=== PATIENT | female | born 1950 | race Caucasian/White ===

== ENCOUNTER 2016-08-29 09:28 | Outpatient (CLI) | payer MEDICARE ==
[2016-08-29 11:14] LABS: ALT (SGPT) 19 U/L (8-55); AST (SGOT) 25 U/L (5-34); Albumin 4.4 g/dL (3.4-4.8); Alkaline Phosphatase 92 U/L (40-150); Bilirubin, Direct 0.3 mg/dL (0.1-0.3); Bilirubin, Total 0.7 mg/dL (0.2-1.2); Cardiac Risk 3.3 (Less than 4.5); Cholesterol 210 mg/dl (< 200 Desired); HDL Cholesterol 64 mg/dL (>60 Neg Risk); LDL Cholesterol, Calculated 129 mg/dL; Protein, Total 7.5 g/dL (6.0-8.3); Triglycerides 86 mg/dL (Less than 150)
== END 2016-08-29 09:29 | disposition home or self-care (01) ==
LOC: BURLAB 09:28
PROVIDERS: ATTEND Internal Medicine Cardiovascular Disease
DX: E78.2 Mixed hyperlipidemia (principal); Z79.01 Long term (current) use of anticoagulants
CPT/HCPCS: 36415; 80061; 80076

== ENCOUNTER 2016-10-03 10:33 | Outpatient (CLI) | payer MEDICARE ==
[2016-10-03 11:44] LABS: #Eosinphils 0.1 thou/uL (0.0-0.7); #Lymphocytes 2.8 thou/uL (1.20-3.40); #Monocytes 0.6 thou/uL (0.11-0.59); #Neutrophils 6.9 thou/uL (1.40-6.50); %Basophils 0.4 % (0.0-1.0); %Eosinophils 0.6 % (0.0-10.0); %Lymphocytes 27.1 % (21.0-51.0); %Monocytes 5.4 % (0.0-10.0); %Neutrophils 66.6 % (42.0-75.0); Mean Corpuscular HGB CONC 34.1 g/dL (32.0-36.0); Mean Platelet Volume 6.3 fL (7.4-10.4); Platelet Count 301 thou/uL (130-400); RBC Distribution Width 13.6 % (11.5-14.5); Red Blood Cell (RBC) Count 4.05 mill/uL (4.20-5.40); White Blood Cell (WBC) Count 10.4 thou/uL (4.8-10.8)
[2016-10-03 12:00] LABS: ALT (SGPT) 23 U/L (8-55); AST (SGOT) 19 U/L (5-34); Albumin 4.3 g/dL (3.4-4.8); Alkaline Phosphatase 118 U/L (40-150); Anion Gap 21 mmol/L (10-20); BUN (Urea Nitrogen) 20 mg/dL (9.8-20.1); Bilirubin, Total 0.9 mg/dL (0.2-1.2); Calc. Creatinine Clearance 0 mL/min (70-130); Calcium 9.3 mg/dL (7.8-10.44); Cardiac Risk 2.6 (Less than 4.5); Chloride 104 mmol/L (98-107); Cholesterol 235 mg/dl (< 200 Desired); Estimated GFR-MDRD 66; Globulin 3.3 g/dL (2.4-3.5); Glucose 89 mg/dL (80-115); HDL Cholesterol 89 mg/dL (>60 Neg Risk); LDL Cholesterol, Calculated 126 mg/dL; Potassium 4.5 mmol/L (3.5-5.1); Protein, Total 7.6 g/dL (6.0-8.3); Sodium 142 mmol/L (136-145); Triglycerides 98 mg/dL (Less than 150)
[2016-10-03 12:05] LABS: Thyroid Stimulating Hormone 4.5549 uIU/mL (0.35-4.94); Vitamin D, 25 Hydroxy 41.7 ng/ml (> 30.0)
[2016-10-03 13:27] LABS: Carbon Dioxide 22 mmol/L (23-31)
== END 2016-10-03 10:34 | disposition home or self-care (01) ==
LOC: HPCALD 10:33
PROVIDERS: ATTEND Family Medicine
DX: E55.9 Vitamin D deficiency, unspecified (principal); I10 Essential (primary) hypertension; E78.5 Hyperlipidemia, unspecified; E53.8 Deficiency of other specified B group vitamins; R53.83 Other fatigue
CPT/HCPCS: 36415; 80053; 80061; 82306; 82607; 84443; 85025

== ENCOUNTER 2018-03-22 11:34 | Outpatient (CLI) | payer MEDICARE ==
--- NOTE | 2018-03-22 19:07 | RAD ---
RIGHT HUMERUS: Date: 03-22-18 FINDINGS: Two views show no fracture. The humerus appears intact. There are no dislocations. IMPRESSION: No significant findings. POS: HOME
--- NOTE | 2018-03-22 19:10 | RAD ---
RIGHT SHOULDER THREE VIEWS: Date: 03-22-18 FINDINGS: No fracture, dislocation, or periarticular calcification was seen. The AC joint is normal in width. T he visible adjacent ribs appear normal. IMPRESSION: No acute finding. POS: HOME
== END 2018-03-22 11:35 | disposition home or self-care (01) ==
LOC: BURRAD 11:34
PROVIDERS: ATTEND Family Medicine
DX: M25.511 Pain in right shoulder (principal); M79.601 Pain in right arm

== ENCOUNTER 2018-12-27 07:49 | Emergency (ER) | payer MEDICARE ==
[2018-12-27 08:22] LABS: #Basophils 0.1 thou/uL (0.0-0.2); #Lymphocytes 2.2 thou/uL (1.20-3.40); #Monocytes 0.6 thou/uL (0.11-0.59); #Neutrophils 15.6 thou/uL (1.40-6.50); %Basophils 0.5 % (0.0-1.0); %Eosinophils 0.2 % (0.0-10.0); %Monocytes 3.5 % (0.0-10.0); %Neutrophils 83.8 % (42.0-75.0); Hemoglobin 12.2 g/dL (12.0-16.0); Mean Corpuscular HGB CONC 32.7 g/dL (32.0-36.0); Mean Corpuscular Hemoglobin 32.2 pg (27.0-31.0); Mean Corpuscular Volume 98.5 fL (78.0-98.0); Mean Platelet Volume 7.4 fL (7.4-10.4); Platelet Count 284 thou/uL (130-400); RBC Distribution Width 13.5 % (11.5-14.5); Red Blood Cell (RBC) Count 3.79 mill/uL (4.20-5.40); White Blood Cell (WBC) Count 18.6 thou/uL (4.8-10.8)
[2018-12-27 08:40] LABS: ALT (SGPT) 16 U/L (8-55); AST (SGOT) 15 U/L (5-34); Albumin 4.1 g/dL (3.4-4.8); Alkaline Phosphatase 124 U/L (40-110); Anion Gap 17 mmol/L (10-20); BUN (Urea Nitrogen) 24 mg/dL (9.8-20.1); Bilirubin, Total 1.2 mg/dL (0.2-1.2); Calc. Creatinine Clearance 0 mL/min (70-130); Calcium 9.6 mg/dL (7.8-10.44); Carbon Dioxide 21 mmol/L (23-31); Chloride 105 mmol/L (98-107); Estimated GFR-MDRD 40; Glucose 155 mg/dL (80-115); Potassium 3.7 mmol/L (3.5-5.1); Protein, Total 7.1 g/dL (6.0-8.3); Sodium 139 mmol/L (136-145)
[2018-12-27] MEDS ORDERED: Iopamidol 370 76% 100 ML VIAL ONE (10:36)
[2018-12-27 10:49] LABS: Bilirubin Negative (Negative); Blood, Urine Negative (Negative); Clarity Clear (Clear); Glucose, Urine (Dipstick) Negative (Negative); Leukocyte Negative (Negative); Nitrite Negative (Negative); Protein, Urine (Dipstick) Negative (Neg-Trace); Urobilinogen 0.2 mg/dL (Less than 2)
[2018-12-27] MEDS ORDERED: Magnesium Citrate 300 ML BOT ONE (10:50)
--- NOTE | 2018-12-27 21:51 | RAD ---
PORTABLE CHEST: Date: 12-27-18 FINDINGS: A portable film at 0841 shows a normal sized heart and clear lungs. There is no vascular congestion o r edema. There is mild elevation of the left hemidiaphragm which may or may not be of significance. T he mediastinum is unremarkable. IMPRESSION: No acute thoracic findings. POS: HOME
--- NOTE | 2018-12-27 21:58 | CT ---
CT ABDOMEN AND PELVIS WITH CONTRAST: Date: 12-27-[address] of the abdomen and pelvis was done for evaluation of abdominal pain. Axial slices were acqu ired followed by coronal and sagittal reconstructions. FINDINGS: The lung bases are clear. The liver, spleen, pancreas, adrenal glands, kidneys and abdominal aorta sh owed no acute findings. The gallbladder is well distended but contain no signs of stones or wall thic kening. There is a large amount of fecal material in the colon. It does not appear overtly obstructed, howeve r, and there does not appear to be any bowel wall thickening. The small bowel is normal in size. Some fluid is present in the stomach. No free air or free fluid was present. CT of the pelvis shows no pelvic masses, fluid collections, or inflammatory changes. An incidental findings of fluid in the distal esophagus which could signify reflux. IMPRESSION: Mild to moderate constipation. Exam otherwise shows no acute finding. POS: HOME
== END 2018-12-27 11:29 | disposition home or self-care (01) ==
LOC: BURERS 07:49
DX: K59.00 Constipation, unspecified (principal); E86.0 Dehydration; I10 Essential (primary) hypertension; E78.5 Hyperlipidemia, unspecified; Z79.82 Long term (current) use of aspirin; Z79.899 Other long term (current) drug therapy; Z85.3 Personal history of malignant neoplasm of breast
CPT/HCPCS: 71045; 74177; 80053; 81003; 83605; 83880; 84484; 85025; 93005; 96360; 96361; Q9967

== ENCOUNTER 2019-11-23 15:34 | Emergency (ER) | payer MEDICARE ==
[~2019-11-23 15:34] MED LIST: Iopamidol 370 76% 100 ML VIAL ONE
[2019-11-23 16:43] LABS: ALT (SGPT) 16 U/L (8-55); AST (SGOT) 14 U/L (5-34); Albumin 4.1 g/dL (3.4-4.8); Alkaline Phosphatase 109 U/L (40-110); Anion Gap 17 mmol/L (10-20); BUN (Urea Nitrogen) 24 mg/dL (9.8-20.1); Bilirubin, Total 0.6 mg/dL (0.2-1.2); Calc. Creatinine Clearance 0 mL/min (70-130); Calcium 9.1 mg/dL (7.8-10.44); Carbon Dioxide 22 mmol/L (23-31); Chloride 103 mmol/L (98-107); Estimated GFR-MDRD 27; Glucose 125 mg/dL (80-115); Lipase 32 U/L (8-78); Magnesium 2.1 mg/dL (1.6-2.6); Potassium 4.1 mmol/L (3.5-5.1); Protein, Total 7.1 g/dL (6.0-8.3); Sodium 138 mmol/L (136-145)
[2019-11-23 16:48] LABS: #Basophils 0.1 thou/uL (0.0-0.2); #Eosinphils 0.1 thou/uL (0.0-0.7); #Lymphocytes 2.8 thou/uL (1.20-3.40); #Monocytes 0.4 thou/uL (0.11-0.59); #Neutrophils 8.2 thou/uL (1.40-6.50); %Basophils 0.7 % (0.0-1.0); %Eosinophils 0.7 % (0.0-10.0); %Lymphocytes 24.1 % (21.0-51.0); %Monocytes 3.5 % (0.0-10.0); Hemoglobin 11.4 g/dL (12.0-16.0); Mean Corpuscular HGB CONC 30.7 g/dL (32.0-36.0); Platelet Count 253 thou/uL (130-400); RBC Distribution Width 12.9 % (11.5-14.5); Red Blood Cell (RBC) Count 3.67 mill/uL (4.20-5.40); White Blood Cell (WBC) Count 11.6 thou/uL (4.8-10.8)
[2019-11-23 17:45] LABS: Bilirubin Negative (Negative); Blood, Urine Trace (Negative); Clarity Clear (Clear); Glucose, Urine (Dipstick) Negative (Negative); Ketone, Urine Negative (Negative); Leukocyte Trace (Negative); Nitrite Negative (Negative); Protein, Urine (Dipstick) Negative (Neg-Trace); Urobilinogen 0.2 mg/dL (Less than 2)
[2019-11-23 17:48] LABS: Bacteria/HPF 3+ HPF (None Seen); RBC/HPF 0-3 HPF (0-3)
[2019-11-23] MEDS ORDERED: Boostrix 0.5 ML VIAL ONE (18:51)
[2019-11-23] MEDS ORDERED: Nitrofurantoin Monohyd/M-Cryst 100 MG CAP ONE (18:51)
--- NOTE | 2019-11-23 19:51 | CT ---
CT OF THE BRAIN WITHOUT CONTRAST: 11/23/19 The ventricles are normal in size with no shift. No intracranial bleeding or extra-axial hematoma was seen. There is no sign of mass, edema, or stroke. The skull appears intact. Mucosal thickening is se en in the left side of the sphenoid sinus. IMPRESSION: No acute intracranial findings. Mucosal thickening of the sphenoid sinus. Preliminary report discussed with Dr. Henderson at 1803 on 11/23/19. POS: HOME
--- NOTE | 2019-11-23 19:56 | CT ---
CT ABDOMEN WITH OUT CONTRAST: 11/23/[address] was done following the original scan done earlier. There were questions about the sp love on the initial scan whether the density differences seen within it were due to phase of contrast administration or if there was any laceration or hematoma. This delayed abdominal scan shows the spleen is intact. There is no sign of laceration or hematoma. T he other structures in the upper abdomen showed no additional findings compared to the earlier scan. IMPRESSION: Spleen intact. POS: HOME
--- NOTE | 2019-11-23 19:58 | CT ---
CT FACIAL BONES: 11/23/[address] was done following trauma. All facial bones appear intact. There was no sign of frac ture of the zygomatic arches, maxilla, nasal bones, orbital rims or mandible. Most of the paranasal s inuses are clear, however, there is chronic mucosal thickening in the left side of the sphenoid sinus . The retro-orbital areas were unremarkable. IMPRESSION: 1. No acute traumatic findings. 2. Mucosal thickening of the sphenoid sinus. Preliminary findings discussed with Dr. Henderson at 1803 on 11/23/19. POS: HOME
--- NOTE | 2019-11-23 20:05 | CT ---
CT OF THE CERVICAL SPINE 11/23/[address] of the cervical spine was performed following trauma. There is loss of the normal cervical lordosis, but there is no sign of fracture, dislocation, or soft tissue swelling. There is slight dis c space narrowing at all cervical levels below C3. Findings by level follow: C1-C2: No acute findings. C2-C3: No acute findings. C3-C4: Mild to moderate left foraminal narrowing. C4-C5: Mild to moderate left foraminal narrowing. C5-C6: C5-C6: Disc osteophyte complex without obvious focal herniation. Moderate to severe bilateral foraminal stenosis due to osteophytes. C6-C7: Mild right foraminal narrowing and moderate left foraminal narrowing. C7-T1: Left facet arthritis and mild to moderate left foraminal narrowing. T1-T2: No acute findings. IMPRESSION: 1. Diffuse degenerative changes, worst in the mid cervical levels. 2. Mild loss of the normal cervical lordosis which may be due to muscle spasm. No fracture seen. Findings discussed with Dr. Henderson at 1803 on 11/23/19. POS: HOME
--- NOTE | 2019-11-23 20:27 | CT ---
CT ANGIO CHEST AND ABDOMEN (AORTIC DISSECTION PROTOCOL): 11/23/[address] of the chest and abdomen was done after a bolus of IV contrast using an aortic dissection p rotocol. The aorta is well opacified and shows no sign of aneurysm or dissection at any level. The celiac, SMA , and NAFISA are all seen filling from the aorta normally. There is probably some plaque near the origin of the celiac artery. Both renal arteries fill symmetrically. Both iliac arteries fill symmetrically . Both internal and external iliac arteries fill. CT of the thorax shows beyond the arterial scan. No sign of mediastinal mass, hematoma or adenopathy. There does appear to be a small to medium amount of pericardial effusion on the left side of the hea rt, however. The lungs are currently clear. There was no sign of significant infiltrate or effusion. There is no pneumothorax. No fractures were appreciated in the ribs or the thoracic spine. CT of the abdomen showed a normal appearing liver, there was some linear patchy hypodensities in the spleen. While these resemble a laceration, this is apparently just due to phase of contrast delivery. A follow-up scan of the spleen was done showing a completely homogenous distribution of contrast. Th e spleen is not large. The adjacent ribs are not fractured, and I am told the patient has no pain her e. The pancreas, adrenal glands, and kidneys showed no acute traumatic findings. The visible portions of bowel show no dilation. No free air or free fluid was present. The lumbar spine shows some degene rative change in it but no sign of fracture. There may be some slight protrusion of the L2-L3 disc on the right side, but other scans would be needed to confirm this. IMPRESSION: 1. No acute traumatic findings in the chest or abdomen. 2. No evidence of aortic dissection or aneurysm. 3. Patchy linear hypodensities in the spleen are felt to be artifactual due to the phase of cont rast administration. A follow-up scan showed no abnormality here, nor does it correlate clinically wi th the patient's symptoms. 4. Degenerative changes of the lumbar spine. Possible slight disc protrusion at L2-L3 more towar ds the right. Consider further follow-up depending upon symptoms. Initial findings discussed with Gianna in ER at 1643. Follow-up confirmation regarding the spleen with Dr. Henderson at 1803 on 11/23/19. POS: HOME
== END 2019-11-23 19:00 | disposition home or self-care (01) ==
LOC: BURERS 15:34
DX: S01.81XA Laceration without foreign body of other part of head, initial encounter (principal); I95.9 Hypotension, unspecified; E86.0 Dehydration; N39.0 Urinary tract infection, site not specified; M54.5 Low back pain; E78.5 Hyperlipidemia, unspecified; E78.00 Pure hypercholesterolemia, unspecified; I10 Essential (primary) hypertension; Z23 Encounter for immunization; W01.0XXA Fall on same level from slipping, tripping and stumbling without subsequent striking against object, initial encounter; R29.6 Repeated falls
CPT/HCPCS: 12011; 70450; 70486; 71275; 72125; 72191; 74150; 74175; 80053; 81003; 81015; 82274; 83605; 83690; 83735; 84443; 84484; 85025; 87040; 90471; 90715; 96360; Q9967

== ENCOUNTER 2021-01-30 07:31 | Emergency (ER) | payer MEDICARE | END 2021-01-30 08:21 | disposition home or self-care (01) | LOC: BURERS 07:31 | DX: B34.9 Viral infection, unspecified (principal); I10 Essential (primary) hypertension; E78.5 Hyperlipidemia, unspecified; Z79.82 Long term (current) use of aspirin | CPT/HCPCS: 99282 ==

== ENCOUNTER 2021-05-21 22:46 | Emergency (ER) | payer MEDICARE ==
[2021-05-21] MEDS ORDERED: cloNIDine 0.1 MG TAB ONE ×2 (23:17→23:19)
== END 2021-05-22 00:50 | disposition home or self-care (01) ==
LOC: BURERS 22:46
DX: I10 Essential (primary) hypertension (principal); E78.5 Hyperlipidemia, unspecified; E78.00 Pure hypercholesterolemia, unspecified
CPT/HCPCS: 99283